=== PATIENT | male | born 1995 | race African-American/Black ===

== ENCOUNTER 2019-08-16 10:00 | Emergency (ER) | payer OTHER ==
[~2019-08-16] VITALS: Ht 172.7 cm; Wt 72.6 kg
[2019-08-16 10:00] VITALS: BP 129/70
[2019-08-16] MEDS ORDERED: NOHOMEMEDICATIONS (10:15)
== END 2019-08-16 10:55 | disposition home or self-care (01) ==
LOC: ER 10:00
DX: H10.11 Acute atopic conjunctivitis, right eye (principal); R06.7 Sneezing; F17.210 Nicotine dependence, cigarettes, uncomplicated

== ENCOUNTER 2020-04-30 06:59 | Emergency (ER) | payer OTHER ==
[~2020-04-30] VITALS: Ht 175.3 cm; Wt 72.6 kg
[~2020-04-30 06:59] MED LIST: NOHOMEMEDICATIONS
[2020-04-30 09:50] VITALS: BP 130/96
== END 2020-04-30 09:50 | disposition home or self-care (01) ==
LOC: ER 06:59
DX: R10.9 Unspecified abdominal pain (principal); F17.210 Nicotine dependence, cigarettes, uncomplicated

== ENCOUNTER 2020-05-22 12:51 | Emergency (ER) | payer OTHER ==
[~2020-05-22] VITALS: Ht 175.3 cm; Wt 83.9 kg
[2020-05-22 13:20] LABS: ABSOLUTE NEUTROPHILS 4.8 thou/uL (1.4-8.2); BASOPHILS 0.4 % (0.0-2.0); EOSINOPHILS 0.9 % (0.0-3.0); HEMATOCRIT 52.6 % (42.0-52.0); HEMOGLOBIN 17.6 gm/dL (14.0-18.0); LYMPHOCYTES 15.9 % (24.0-44.0); MCH 30.4 pg (26.0-34.0); MCHC 33.4 g/dL (28.0-37.0); MONOCYTES 8.7 % (1.0-8.0); PLATELET COUNT 188 thou/uL (150-400); POLYS 74.1 % (36.0-66.0); RBC 5.78 mil/uL (4.50-6.00); RDW 13.2 % (10.5-14.5); WBC 6.5 thou/uL (4.0-11.0)
[2020-05-22 13:28] LABS: CALCIUM 9.2 mg/dL (8.5-10.1); POTASSIUM 3.3 mmol/L (3.5-5.1)
[2020-05-22 13:34] LABS: ALBUMIN 4.1 g/dL (3.4-5.0); TOTAL PROTEIN 7.3 g/dL (6.4-8.2)
[2020-05-22] MEDS ORDERED: ZOFRAN ODT4 MG PO (14:44)
[2020-05-22 15:15] VITALS: BP 110/58
== END 2020-05-22 15:22 | disposition home or self-care (01) ==
LOC: ER 12:51
PROVIDERS: Physician Assistant
DX: R11.15 Cyclical vomiting syndrome unrelated to migraine (principal); E87.6 Hypokalemia; R10.84 Generalized abdominal pain; F17.210 Nicotine dependence, cigarettes, uncomplicated